=== PATIENT | male | born 1965 | race African-American/Black ===

== ENCOUNTER 2018-02-19 13:48 | Emergency (ER) | payer OTHER, MEDICAID ==
[~2018-02-19] VITALS: Ht 172.7 cm; Wt 75.0 kg
[2018-02-19] MEDS ORDERED: KETOROLAC 30MG/ML VIAL IM ONE (16:30)
[2018-02-19 17:44] VITALS: BP 123/67
== END 2018-02-19 17:51 | disposition home or self-care (01) ==
LOC: ER 14:04
DX: G89.21 Chronic pain due to trauma (principal); M25.512 Pain in left shoulder; M25.511 Pain in right shoulder; R07.89 Other chest pain; S20.212D Contusion of left front wall of thorax, subsequent encounter; R53.1 Weakness; Y93.89 Activity, other specified; V03.90XD Pedestrian on foot injured in collision with car, pick-up truck or van, unspecified whether traffic or nontraffic accident, subsequent encounter; Y92.410 Unspecified street and highway as the place of occurrence of the external cause; Z98.890 Other specified postprocedural states
CPT/HCPCS: 71045; 93005; 96372; 99284; J1885